=== PATIENT | male | born 1990 | race African-American/Black ===

== ENCOUNTER 2017-06-21 15:58 | Emergency (ER) | payer OTHER ==
[~2017-06-21] VITALS: Ht 188 cm; Wt 103.1 kg
[2017-06-21 17:50] VITALS: BP 125/77
== END 2017-06-21 17:51 | disposition home or self-care (01) ==
LOC: EME 15:58
DX: S80.01XA Contusion of right knee, initial encounter (principal); V49.40XA Driver injured in collision with unspecified motor vehicles in traffic accident, initial encounter
CPT/HCPCS: 73564; 99281; 99283